=== PATIENT | male | born 1995 | race Caucasian/White ===

== ENCOUNTER 2016-05-15 13:14 | Emergency (ER) | payer OTHER ==
[2016-05-15] MEDS ORDERED: KETOROLAC TROMETHAMINE 30 MG/ML 1 ML VIAL ONE (13:48)
--- NOTE | 2016-05-15 14:04 | RAD ---
Exam: Three-view left hand COMPARISON: None INDICATION: Left hand laceration. FINDINGS: PA, lateral and oblique views of the left hand were obtained. Soft tissue irregularity is about the base of the thumb compatible with laceration. There is a 4 mm radiopaque foreign body which projects near the ulnar aspect of the first metacarpal head; this is not seen on the lateral view, but foreign body is suspected. Alignment is normal. No acute fracture is identified. IMPRESSION: 4 mm a radiopaque foreign body in the soft tissues near the base of the thumb in setting of recent laceration. No acute osseous abnormality.
== END 2016-05-15 15:22 | disposition home or self-care (01) ==
LOC: ED 13:14
DX: S61.012A Laceration without foreign body of left thumb without damage to nail, initial encounter (principal); V43.62XA Car passenger injured in collision with other type car in traffic accident, initial encounter; Y92.410 Unspecified street and highway as the place of occurrence of the external cause; J45.909 Unspecified asthma, uncomplicated; R01.1 Cardiac murmur, unspecified
CPT/HCPCS: 73130; 99283 ×2; 12041 ×2; 29125; 96372; 96374; J1885